=== PATIENT | female | born 1975 | race Caucasian/White ===

== ENCOUNTER 2024-07-26 19:44 | Emergency (ER) | payer OTHER, SELFPAY ==
[2024-07-26 19:44] VITALS: BMI 40.0
[2024-07-26 19:46] VITALS: BP 180/105
[2024-07-26 20:31] LABS: Urine Albumin 1+ (Neg - Trace); Urine Bilirubin Negative (Negative); Urine Character Clear (Clear); Urine Color Yellow; Urine Glucose Negative (Negative); Urine Ketone Negative (Negative); Urine Leukocyte Negative (Negative); Urine Nitrite Negative (Negative); Urine Occult Blood 2+ (Negative); Urine Urobilinogen Negative (Neg - 1+)
[2024-07-26 20:32] LABS: % Basophils 0.4 % (0-2); % Eosinophils 2.2 % (0-6); % Immature Granulocytes 0.5 % (0-0.5); % Lymphocytes 12.5 % (20.5-51.1); % Monocytes 8.2 % (1.7-9.3); % Neutrophils 76.2 % (42.2-75.2); Absolute Basophils 0.1 10^3/uL (0-0.2); Absolute Eosinophils 0.3 10^3/uL (0-0.7); Absolute Immature Granulocytes 0.1 10^3/uL (0-0.05); Absolute Lymphocytes 1.6 10^3/uL (1.2-3.4); Absolute Neutrophils 9.5 10^3/uL (1.4-6.5); Hematocrit 34.7 % (37.0-47.0); Hemoglobin 10.9 g/dL (12.0-16.0); Lactic Acid 0.9 mmol/L (0.7-2.0); Mean Corp Hgb Conc. 31.4 g/dL (33.0-37.0); Mean Corpuscular Hgb 27.7 pg (27.0-31.0); Mean Corpuscular Volume 88.3 fL (81.0-99.0); Mean Platelet Volume 9.3 fL (7.4-10.4); Nucleated Red Blood Cells % 0 %; Platelet Count 330 10^3/uL (130-400); Red Blood Cell Count 3.93 10^6/uL (4.20-5.40); Red Cell Dist. Width 25.7 % (11.5-14.5); White Blood Cell Count 12.5 10^3/uL (4.8-10.8)
[2024-07-26 20:38] LABS: Anisocytosis 2+; Normal RBC Morphology No
[2024-07-26 20:39] LABS: ALT (SGPT) 44 U/L (0-35); AST (SGOT) 30 U/L (14-36); Alkaline Phosphatase 90 U/L (38-126); Blood Urea Nitrogen 18 mg/dl (7-17); Calcium 9.2 mg/dl (8.4-10.2); Carbon Dioxide 27 mmol/L (22-30); Chloride 106 mmol/L (98-107); Glucose 148 mg/dl (70-99); Hypochromasia 2+; Microcytosis 2+; Potassium 4.2 mmol/L (3.5-5.1); Sodium 142 mmol/L (135-145); Total Bilirubin 0.4 mg/dl (0.2-1.3); Total Protein 6.8 g/dl (6.3-8.2); eGFR > 60.00
[2024-07-26 20:40] LABS: Polychromasia Occasional
[2024-07-26 20:42] LABS: Urine Calcium Oxalate Crystals Present
[2024-07-26 20:45] LABS: Urine Bacteria Moderate (Negative); Urine White Cell 0-2 /HPF (0-5)
[2024-07-26 20:50] LABS: COVID-19 Antigen Negative (Negative)
[2024-07-26 22:08] VITALS: BP 165/101
--- NOTE | 2024-07-26 23:26 | ED.GENMED ---
History of Present Illness
<DEANDRE Lyon - Last Filed: 07/27/24 16:23>
General
Chief Complaint: Fatigue
Source: patient
Exam Limitations: none
Time Seen by Provider: 07/26/24 22:23
Nursing documentation reviewed up to this point in time: agreed with
History of Present Illness
History of Present Illness:
Patient is a 48-year-old female who presents to the ER for evaluation. 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 She has been currently receiving iron transfusions and received 5 transfusions so far.
She received her fifth and last transfusion of iron on Tuesday and 2 days after on s Tuesday she started with severe generalized muscle and bone pain .ibuprofen and Tylenol is not helping. She complains of fatigue and chills Her dentist gave her
oxycodone for ulcers and pain in her mouth which she is now taking for her body pain.
She tells me she did notify her field assessor about feeling body aches and muscle and joint pains since the iron transfusion but they were not concerned.
Today the pain became so severe she had a come to the ER.
She is due to see her GI specialist however not for the next several weeks.
She reports she saw her family doctor who did a full rheumatology workup and everything was negative
Review of Systems
<DEANDRE Lyon - Last Filed: 07/27/24 16:23>
Review of Systems
Allergies reviewed?: Yes
All Other Systems: ROS reviewed and negative except as documented in HPI and ROS
Constitutional: Reports no symptoms
ABD/GI: Reports no symptoms
: Reports no symptoms
Musculoskeletal: Reports muscle pain and other (bone pain )
Skin: Reports no symptoms
Neurological: Reports no symptoms
Psychiatric: Reports no symptoms
Phy Exam
<DEANDRE Lyon - Last Filed: 07/27/24 16:23>
General Physical Exam
General Presentation: no apparent distress
General age: appears stated age
General Skin: warm and dry
General Habitus: normal
General Mental: alert
General Hydration: appears well hydrated
ENT Exam
ENT Exam: other (small whitish ulcer to left lateral tongue smells amazing what the scale is once it was and it sounds)
Course
<DEANDRE Lyon - Last Filed: 07/27/24 16:23>
Orders/Labs/Results
Orders:
Orders
07/26/24 19:52
Electrocardiogram (*1) Urgent
Reason for Study: Other
Other Reason for Exam: Possible Sepsis
07/26/24 19:53
EKG- Treatment ONCE
07/26/24 20:11
Complete Blood Count/With Diff Urgent
Comprehensive Metabolic Panel Urgent
Creatine Phosphokinase Urgent
Comment: ADDED
Lactic Acid Q4H
Comment: ON ICE, CANCEL 2ND ORDER IF FIRST LACTIC ACID LEVEL <2
Lyme Progressive Urgent
Date Specimen was Collected: 07/26/24
Time Specimen was Collected: 19:53
Comment: ADD ON
Urinalysis Reflex To Culture Urgent
Date Specimen was Collected: 07/26/24
Time Specimen was Collected: 19:53
Urine Microscopic Reflex Cult Urgent
Blood Culture Q20M
KARINA Source: Blood/Venous
Specimen Description:
Comment: Urgent from separate sites. If patient screens positive for possible sepsis
Urine Culture Urgent
KARINA Source: U
Specimen Description:
Date Specimen was Collected: 07/26/24
Time Specimen was Collected: 19:53
07/26/24 20:20
COVID-19 Antigen Routine
Source: Nasal Swab
INF RAPID [Influenza A+B Rapid Molecular] Urgent
KARINA Source: Nasal Swab
Specimen Description:
07/26/24 23:46
Add On- LAB Urgent
Tests Added?: lyme
Ketorolac [Toradol] 15 mg IV NOW STA
07/27/24 00:38
Add On- LAB Urgent
Tests Added?: cpk
Abnormal Lab Results
07/26/24
20:11
WBC 12.5 H 10^3/uL
(4.8-10.8)
RBC 3.93 L 10^6/uL
(4.20-5.40)
Hgb 10.9 L g/dL
(12.0-16.0)
Hct 34.7 L %
(37.0-47.0)
MCHC 31.4 L g/dL
(33.0-37.0)
RDW 25.7 H %
(11.5-14.5)
Abs Immat Gran (auto) 0.1 H 10^3/uL
(0-0.05)
Absolute Neuts (auto) 9.5 H 10^3/uL
(1.4-6.5)
Absolute Monos (auto) 1.0 H 10^3/uL
(0.1-0.6)
Neutrophils % 76.2 H %
(42.2-75.2)
Lymphocytes % 12.5 L %
(20.5-51.1)
BUN 18 H mg/dl
(7-17)
Glucose 148 H mg/dl
(70-99)
ALT 44 H U/L
(0-35)
Ur Occult Blood Reflex 2+ A
(Negative)
Urine RBC 3-6 A /HPF
(0-2)
Urine Bacteria (Reflex) Moderate A
(Negative)
Urine Albumin (Reflex) 1+ A
(Neg - Trace)
07/26/24 20:11
07/26/24 20:11
Vital Signs
Initial and Last Documented VS:
Initial Vital Signs
Temp Pulse Resp BP Pulse Ox
99.7 F 109 17 180/105 97
07/26/24 19:46 07/26/24 19:46 07/26/24 19:46 07/26/24 19:46 07/26/24 19:46
Last Documented Vital Signs
Temp Pulse Resp BP Pulse Ox
99.7 F 101 18 138/72 99
07/26/24 19:46 07/27/24 02:55 07/27/24 02:55 07/27/24 02:55 07/27/24 02:55
Sanitarian consulted with Physician
Sanitarian consulted with physician?: Yes
Name of Physician Consulted: Ting
<Yosef Maguire, DO - Last Filed: 07/27/24 02:56>
Orders/Labs/Results
Orders:
Orders
07/26/24 19:52
Electrocardiogram (*1) Urgent
Reason for Study: Other
Other Reason for Exam: Possible Sepsis
07/26/24 19:53
EKG- Treatment ONCE
07/26/24 20:11
Complete Blood Count/With Diff Urgent
Comprehensive Metabolic Panel Urgent
Creatine Phosphokinase Urgent
Comment: ADDED
Lactic Acid Q4H
Comment: ON ICE, CANCEL 2ND ORDER IF FIRST LACTIC ACID LEVEL <2
Lyme Progressive Urgent
Date Specimen was Collected: 07/26/24
Time Specimen was Collected: 19:53
Comment: ADD ON
Urinalysis Reflex To Culture Urgent
Date Specimen was Collected: 07/26/24
Time Specimen was Collected: 19:53
Urine Microscopic Reflex Cult Urgent
Blood Culture Q20M
KARINA Source: Blood/Venous
Specimen Description:
Comment: Urgent from separate sites. If patient screens positive for possible sepsis
Urine Culture Urgent
KARINA Source: U
Specimen Description:
Date Specimen was Collected: 07/26/24
Time Specimen was Collected: 19:53
07/26/24 20:20
COVID-19 Antigen Routine
Source: Nasal Swab
INF RAPID [Influenza A+B Rapid Molecular] Urgent
KARINA Source: Nasal Swab
Specimen Description:
07/26/24 23:46
Add On- LAB Urgent
Tests Added?: lyme
Ketorolac [Toradol] 15 mg IV NOW STA
07/27/24 00:38
Add On- LAB Urgent
Tests Added?: cpk
Abnormal Lab Results
07/26/24
20:11
WBC 12.5 H 10^3/uL
(4.8-10.8)
RBC 3.93 L 10^6/uL
(4.20-5.40)
Hgb 10.9 L g/dL
(12.0-16.0)
Hct 34.7 L %
(37.0-47.0)
MCHC 31.4 L g/dL
(33.0-37.0)
RDW 25.7 H %
(11.5-14.5)
Abs Immat Gran (auto) 0.1 H 10^3/uL
(0-0.05)
Absolute Neuts (auto) 9.5 H 10^3/uL
(1.4-6.5)
Absolute Monos (auto) 1.0 H 10^3/uL
(0.1-0.6)
Neutrophils % 76.2 H %
(42.2-75.2)
Lymphocytes % 12.5 L %
(20.5-51.1)
BUN 18 H mg/dl
(7-17)
Glucose 148 H mg/dl
(70-99)
ALT 44 H U/L
(0-35)
Ur Occult Blood Reflex 2+ A
(Negative)
Urine RBC 3-6 A /HPF
(0-2)
Urine Bacteria (Reflex) Moderate A
(Negative)
Urine Albumin (Reflex) 1+ A
(Neg - Trace)
07/26/24 20:11
07/26/24 20:11
Vital Signs
Initial and Last Documented VS:
Initial Vital Signs
Temp Pulse Resp BP Pulse Ox
99.7 F 109 17 180/105 97
07/26/24 19:46 07/26/24 19:46 07/26/24 19:46 07/26/24 19:46 07/26/24 19:46
Last Documented Vital Signs
Temp Pulse Resp BP Pulse Ox
99.7 F 101 18 138/72 99
07/26/24 19:46 07/27/24 02:55 07/27/24 02:55 07/27/24 02:55 07/27/24 02:55
<DEANDRE Lyon - Last Filed: 07/27/24 16:23>
MDM/Problems Addressed
MDM/Problems Addressed:
As documented patient is a 48-year-old female who presents to the ER for evaluation. 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 She was seen by her family doctor and dentist. She does have sores in her mouth. She
also was seen by hematology for iron deficiency anemia. She received her last iron transfusion on Tuesday and 2 days after developed body aches and muscle pain. She presents to the ER for evaluation of this. She denies any actual fevers.
Patient presents awake alert no acute distress. Patient's white count is minimally elevated she reports this is not new. Her field assessor and family doctor are aware of this. Her hemoglobin is mildly low at 10.9. She has normal renal function
including normal CPK. Her urinalysis is negative for infection. On exam she is no obvious distress. Patient was given Toradol fluids here which actually improved her symptoms. Patient is not happy with her current field assessor. Did give patient
our hematology group to follow-up with. I did explain to patient that she will need continued follow-up for evaluation of symptoms however at this time there is nothing emergent. Patient does not require admission for workup I did review with
patient the importance of following up with outpatient physicians. Case reviewed ED physician patient stable for discharge home.
I did order Lyme test for patient
Chronic conditions affecting care:
Iron deficiency anemia
<DEANDRE Lyon - Last Filed: 07/27/24 16:23>
*Radiology
Radiology exam reviewed: radiology read reviewed
*Pulse Oximetry
Patient hypoxic: no
*EKG
Interpreted by ED Provider?: Yes
Interpretation: normal
Heart Rate: 104
Rate: normal
Rhythm: sinus
Ischemia: no ischemia
*Critical Care Note
Total Time (30-74mins, 75-104mins- exclusive of procedures): Not Applicable
ED Attending Note
<DEANDRE Lyon - Last Filed: 07/27/24 16:23>
-
Portions of this chart may have been created with voice recognition software.� Occasional wrong word or��sound alike� substitutions may have occurred due to the inherent limitations of voice recognition software.
<Yosef Maguire DO - Last Filed: 07/27/24 02:56>
ED Attending Note
Patient seen and examined by attending physician: Yes
ED Attending Note:
48-year-old female presents to the emergency department with bodyaches. I have reviewed all labs with her. Answered several questions. Patient stable for discharge with close follow-up. Patient was seen in conjunction with the PA. I have
reviewed and agree with her history and treatment plan. I am independent physical exam patient is awake, alert, and oriented x 3, no acute distress. Attending appropriately. No respiratory distress. Patient ambulates with a steady gait.
Discharge Plan
Departure
Patient Disposition: Home (Routine Discharge)
Date of Disposition: 07/27/24
Time of Disposition: 02:29
Patient with high blood pressure during this ER visit?: Yes
Condition: Fair
Covid-19: Not Applicable
Discharge Problem:
muscle and bone pain
Instructions: Muscle, joint, and bone pain - Discharge instructions, BLOOD PRESSURE
Prescriptions:
No Action
atorvastatin 20 mg Tablet
20 mg PO DAILY
famotidine [Pepcid] 40 mg Tablet
40 mg PO DAILY
clonazepam 1 mg Tablet
1 mg PO HS
venlafaxine [Effexor XR] 150 mg Capsule,Extended Release 24hr
150 mg PO DAILY
norethindrone acetate 5 mg Tablet
5 mg PO DAILY
oxycodone 5 mg Tablet
5 mg PO Q6H PRN (Reason: pain)
thyroid (pork) [[place] Thyroid] 120 mg Tablet
120 mg PO DAILY
Referrals:
Rosina Gallegos MD [Active] -
UNKNOWN - PT DOES,NOT KNOW [Family Provider] -
Stand Alone Forms: Return to Work
Activity Restrictions/Additional Instructions:
As discussed please follow-up with hematology for further evaluation of your symptoms and your iron deficiency anemia. As requested you were given the name of our field assessor. Please follow-up with your family doctor for further evaluation of
your symptoms including elevated blood pressure. A Lyme test was done and pending please have your family doctor follow-up on this result.
You may continue to alternate between Tylenol and ibuprofen. Stay well-hydrated. Return if any worsening of symptoms.
Interventions
Interventions:
*Risk Screen - Suicide Last Done: 07/26/24 19:46
*General Assessment Last Done: 07/26/24 19:46
*Neglect/Abuse Screening Last Done: 07/26/24 19:46
*ED- Fall Risk Assessment Last Done: 07/27/24 02:55
*ED COVID-19 Vaccine History Last Done: 07/27/24 02:55
*Nursing Disposition Last Done: 07/27/24 02:55
Discharge Date and Time
Discharge Date/Time: 07/27/24 02:56
Print Language: BELARUSIAN
[2024-07-27] VITALS: BP 139/84
[2024-07-27] MEDS: TORADOL 15 MG IV (00:07)
[2024-07-27 01:57] LABS: Creatine Phosphokinase 37 U/L (30-135)
[2024-07-27 02:55] VITALS: BP 138/72
== END 2024-07-27 02:56 | disposition home or self-care (01) ==
LOC: EMR 19:44
PROVIDERS: Emergency Medicine; EMERGENCY PHYSICIAN Student in an Organized Health Care Education/Training Program
DX: M79.10 Myalgia, unspecified site (principal); M89.8X9 Other specified disorders of bone, unspecified site; Z11.52 Encounter for screening for COVID-19; Z86.2 Personal history of diseases of the blood and blood-forming organs and certain disorders involving the immune mechanism
CPT/HCPCS: 99284; 96374; 80053; 81003; 81015; 82550; 83605; 85025; 86618; 87040; 87086; 87502; 87811; 93005